=== PATIENT | female | born 1980 ===

== ENCOUNTER 2021-11-11 14:45 | Inpatient (IN) ==
[2021-11-11 17:40] LABS: ABS Basophils 0.1 10^3/ul (0-0.2); ABS Lymphocytes 1.4 10^3/ul (1.0-4.8); ABS Monocytes 0.1 10^3/ul (0-0.8); ABS Neutrophils 5.4 10^3/ul (1.5-7.7); ABS Nucleated RBC 0.1 10^3/ul; Hematocrit 12 % (35-47); Hemoglobin 3.3 g/dL (12.0-16.0); Lymphocyte % 20.6 %; Mean Corpuscular HGB Conc 27 g/dL (31-36); Mean Corpuscular Hemoglobin 18 pg (27-31); Mean Corpuscular Volume 66 fL (80-97); Mean Platelet Volume 8.1 fL (7.4-10.4); Nucleated Red Blood Cells % 1.8; Platelet Count 180 10^3/uL (150-450); Red Cell Distribution Width 22 % (10-15)
[2021-11-11 17:48] LABS: Anion Gap 10 mmol/L (2-11); Blood Urea Nitrogen 10 mg/dL (6-24); CO2 Carbon Dioxide 24 mmol/L (22-32); Chloride 102 mmol/L (101-111); Glucose 71 mg/dL (70-100); Potassium 3.8 mmol/L (3.5-5.0); Sodium 136 mmol/L (135-145); eGFR CKD-EPI 91.3 (>60)
[2021-11-11 17:56] LABS: LDH 354 U/L (140-271)
[2021-11-11 18:04] LABS: Anisocytosis 2+; Hypochromasia 2+; Microcytosis 2+
[2021-11-11 18:05] LABS: Polychromasia 1+
[2021-11-11 18:06] LABS: Stomatocytes 1+; Tear Drop Cells 1+
[2021-11-11 18:20] LABS: Folate > 20.00 ng/mL (5.90-24.80)
[2021-11-11 18:21] LABS: Vitamin B12 1161 pg/mL (180-914)
[2021-11-11] MEDS ORDERED: Lactated Ringers 1000 ml BAG 1,000 ML IV ONE (18:33)
[2021-11-11 18:52] LABS: Hematocrit for Retic CNT 12 % (35-47)
[2021-11-11 19:07] LABS: Corrected Retic Count 1.2 % (0.5-1.5); Immature Retic Fraction 0.49
[2021-11-11 19:22] LABS: TSH Ultra Thyroid Stim Horm 27.78 mcIU/mL (0.34-5.60)
[2021-11-11 19:55] LABS: ALT 8 U/L (7-52); AST 32 U/L (13-39); Albumin/Globulin Ratio 1.1 (1-3); Alkaline Phosphatase 48 U/L (35-149); Globulin 3.7 g/dL (2-4); Total Protein 7.7 g/dL (6.4-8.9); Troponin I 0.02 ng/mL (<0.03)
[2021-11-11] MEDS ORDERED: Remdesivir 100 mg Vial 200 MG in NS 0.9% 250 ml 210 ML IV ONE (19:56)
[2021-11-11 19:59] LABS: HCG Pregnancy 0.95 mIU/mL
[2021-11-11] MEDS ORDERED: cefTRIAXone 1 gm/50 mL NS BAG 1 GM/50 ML BAG IVPB SCH (20:00)
[2021-11-11 20:31] LABS: Indirect Bilirubin 0.4 mg/dL (0.3-1.0)
[2021-11-11] MEDS: Nicotine PATCH 7 MG/24 HR PATCH TRANSDERM SCH (21:42)
[2021-11-11 21:47] LABS: ABS Basophils 0.1 10^3/ul (0-0.2); ABS Lymphocytes 1.2 10^3/ul (1.0-4.8); ABS Monocytes 0.1 10^3/ul (0-0.8); ABS Neutrophils 5.2 10^3/ul (1.5-7.7); ABS Nucleated RBC 0.1 10^3/ul; Hematocrit 13 % (35-47); Hemoglobin 3.8 g/dL (12.0-16.0); Lymphocyte % 18.2 %; Mean Corpuscular HGB Conc 30 g/dL (31-36); Mean Corpuscular Hemoglobin 20 pg (27-31); Mean Corpuscular Volume 67 fL (80-97); Mean Platelet Volume 8.5 fL (7.4-10.4); Nucleated Red Blood Cells % 1.9; Platelet Count 160 10^3/uL (150-450); Red Blood Count 1.89 10^6 /uL (3.70-4.87); Red Cell Distribution Width 24 % (10-15); White Blood Count 6.5 10^3/uL (3.5-10.8)
[2021-11-11 21:50] LABS: INR 1.24 (0.86-1.15)
[2021-11-11 21:58] LABS: Albumin 3.6 g/dL (3.2-5.2); Albumin/Globulin Ratio 1.2 (1-3); Calcium 7.6 mg/dL (8.6-10.3); Globulin 3.1 g/dL (2-4); Potassium 3.7 mmol/L (3.5-5.0); Total Bilirubin 0.5 mg/dL (0.2-1.0); Total Protein 6.7 g/dL (6.4-8.9); eGFR CKD-EPI 95.5 (>60)
[2021-11-11 22:00] LABS: Troponin I 0.02 ng/mL (<0.03)
[2021-11-12 05:06] LABS: Urine Appearance Cloudy; Urine Bilirubin Negative (Negative); Urine Blood Negative (Negative); Urine Color Yellow; Urine Glucose Negative (Negative); Urine Ketones Negative (Negative); Urine Nitrite Positive (Negative); Urine Protein Negative (Negative); Urine Specific Gravity 1.028 (1.002-1.030); Urine Urobilinogen Negative (Negative)
[2021-11-12 05:11] LABS: Urine Bacteria Absent (Absent); Urine Red Blood Cell Trace(0-2/hpf) (Absent); Urine Squamous Epithelial Cell Present (Absent); Urine White Blood Cell Trace(0-5/hpf) (Absent)
[2021-11-12 06:02] LABS: INR 1.19 (0.86-1.15)
[2021-11-12 06:03] LABS: ABS Lymphocytes 1.7 10^3/ul (1.0-4.8); ABS Monocytes 0.1 10^3/ul (0-0.8); ABS Neutrophils 5.1 10^3/ul (1.5-7.7); ABS Nucleated RBC 0.1 10^3/ul; Hematocrit 16 % (35-47); Hemoglobin 5.1 g/dL (12.0-16.0); Mean Corpuscular HGB Conc 31 g/dL (31-36); Mean Corpuscular Hemoglobin 22 pg (27-31); Mean Corpuscular Volume 70 fL (80-97); Mean Platelet Volume 8.4 fL (7.4-10.4); Nucleated Red Blood Cells % 1.9; Platelet Count 155 10^3/uL (150-450); Red Blood Count 2.34 10^6 /uL (3.70-4.87); Red Cell Distribution Width 25 % (10-15)
[2021-11-12 06:10] LABS: ALT 8 U/L (7-52); AST 32 U/L (13-39); Albumin 3.8 g/dL (3.2-5.2); Albumin/Globulin Ratio 1.2 (1-3); Alkaline Phosphatase 47 U/L (35-149); Anion Gap 8 mmol/L (2-11); Blood Urea Nitrogen 11 mg/dL (6-24); CO2 Carbon Dioxide 24 mmol/L (22-32); Calcium 7.5 mg/dL (8.6-10.3); Chloride 103 mmol/L (101-111); Globulin 3.3 g/dL (2-4); Glucose 108 mg/dL (70-100); Potassium 3.9 mmol/L (3.5-5.0); Sodium 135 mmol/L (135-145); Total Protein 7.1 g/dL (6.4-8.9); eGFR CKD-EPI 98.4 (>60)
[2021-11-12] MEDS: cefTRIAXone 1 gm/50 mL NS BAG 1 GM/50 ML BAG IVPB SCH (08:30)
[2021-11-12] MEDS: Nicotine PATCH 7 MG/24 HR PATCH TRANSDERM SCH (08:31)
[2021-11-12 10:09] LABS: Free T4 < 0.25 ng/dL (0.61-1.12)
[2021-11-12 14:55] LABS: Hematocrit 19 % (35-47); Mean Corpuscular HGB Conc 31 g/dL (31-36); Mean Corpuscular Hemoglobin 23 pg (27-31); Mean Corpuscular Volume 73 fL (80-97); Mean Platelet Volume 8.6 fL (7.4-10.4); Platelet Count 159 10^3/uL (150-450); Red Blood Count 2.63 10^6 /uL (3.70-4.87); Red Cell Distribution Width 27 % (10-15); White Blood Count 7.3 10^3/uL (3.5-10.8)
[2021-11-12 15:53] LABS: ABS Lymphocytes 1.6 10^3/ul (1.0-4.8); ABS Monocytes 0.1 10^3/ul (0-0.8); ABS Neutrophils 5.5 10^3/ul (1.5-7.7); ABS Nucleated RBC 0.2 10^3/ul; Lymphocyte % 21.7 %; Nucleated Red Blood Cells % 2.5
[2021-11-12 19:00] LABS: Erythrocyte Sed Rate > 120 mm/Hr (0-19)
[2021-11-12] MEDS: Senna TAB 8.6 mg TAB PO PRN (20:26)
[2021-11-12] MEDS: Remdesivir 100 mg Vial 100 MG in NS 0.9% 250 ml 230 ML IV SCH (20:27)
[2021-11-13 06:56] LABS: ABS Lymphocytes 2.2 10^3/ul (1.0-4.8); ABS Monocytes 0.2 10^3/ul (0-0.8); ABS Neutrophils 4.6 10^3/ul (1.5-7.7); ABS Nucleated RBC 0.2 10^3/ul; Hematocrit 19 % (35-47); Hemoglobin 5.7 g/dL (12.0-16.0); Lymphocyte % 30.7 %; Mean Corpuscular HGB Conc 31 g/dL (31-36); Mean Corpuscular Hemoglobin 23 pg (27-31); Mean Corpuscular Volume 74 fL (80-97); Mean Platelet Volume 8.7 fL (7.4-10.4); Nucleated Red Blood Cells % 3.3; Platelet Count 137 10^3/uL (150-450); Red Blood Count 2.52 10^6 /uL (3.70-4.87); Red Cell Distribution Width 27 % (10-15); White Blood Count 7.1 10^3/uL (3.5-10.8)
[2021-11-13 07:09] LABS: Albumin 3.6 g/dL (3.2-5.2); Albumin/Globulin Ratio 1.1 (1-3); Calcium 7.6 mg/dL (8.6-10.3); Globulin 3.3 g/dL (2-4); Magnesium 2.1 mg/dL (1.9-2.7); Potassium 3.9 mmol/L (3.5-5.0); Total Bilirubin 0.4 mg/dL (0.2-1.0); Total Protein 6.9 g/dL (6.4-8.9); eGFR CKD-EPI 103.2 (>60)
[2021-11-13 07:13] LABS: INR 1.12 (0.86-1.15)
[2021-11-13] MEDS: cefTRIAXone 1 gm/50 mL NS BAG 1 GM/50 ML BAG IVPB SCH (07:18)
[2021-11-13 07:45] LABS: HDL Cholesterol 25.4 mg/dL
[2021-11-13] MEDS: Nicotine PATCH 7 MG/24 HR PATCH TRANSDERM SCH (09:07)
[2021-11-13] MEDS: Enoxaparin 40 MG/0.4 ML SYR SUBCUT SCH (12:44)
[2021-11-13 15:02] LABS: % Iron Saturation 3 % (14 - 50); Total Iron Binding Capacity 432 mcg/dL (250 - 400); Transferrin 366 mg/dL (200 - 360)
[2021-11-13 16:20] LABS: Hematocrit 23 % (35-47); Hemoglobin 7.1 g/dL (12.0-16.0); Mean Corpuscular HGB Conc 31 g/dL (31-36); Mean Corpuscular Hemoglobin 24 pg (27-31); Mean Corpuscular Volume 76 fL (80-97); Platelet Count 145 10^3/uL (150-450); Red Cell Distribution Width 26 % (10-15); White Blood Count 7.8 10^3/uL (3.5-10.8)
[2021-11-13 16:53] LABS: Anisocytosis 2+; Hypochromasia 1+; Polychromasia 1+
[2021-11-13 16:54] LABS: Tear Drop Cells 1+
[2021-11-13 16:55] LABS: ABS Lymphocytes 1.2 10^3/ul (1.0-4.8); ABS Monocytes 0.2 10^3/ul (0-0.8); ABS Neutrophils 6.4 10^3/ul (1.5-7.7); ABS Nucleated RBC 0.3 10^3/ul; Lymphocyte % 15.5 %; Nucleated Red Blood Cells % 4.3
[2021-11-13 17:05] LABS: Microcytosis 2+
[2021-11-13] MEDS: Remdesivir 100 mg Vial 100 MG in NS 0.9% 250 ml 230 ML IV SCH (20:15)
[2021-11-13] MEDS: Senna TAB 8.6 mg TAB PO PRN (20:15)
[2021-11-14 05:34] LABS: Hematocrit 22 % (35-47); Hemoglobin 6.9 g/dL (12.0-16.0); Mean Corpuscular HGB Conc 32 g/dL (31-36); Mean Corpuscular Hemoglobin 24 pg (27-31); Mean Corpuscular Volume 75 fL (80-97); Mean Platelet Volume 8.8 fL (7.4-10.4); Platelet Count 150 10^3/uL (150-450); Red Blood Count 2.91 10^6 /uL (3.70-4.87); Red Cell Distribution Width 27 % (10-15); White Blood Count 6.6 10^3/uL (3.5-10.8)
[2021-11-14 05:49] LABS: INR 1.12 (0.86-1.15)
[2021-11-14 05:50] LABS: ABS Lymphocytes 2.3 10^3/ul (1.0-4.8); ABS Monocytes 0.4 10^3/ul (0-0.8); ABS Neutrophils 3.9 10^3/ul (1.5-7.7); ABS Nucleated RBC 0.5 10^3/ul; Lymphocyte % 34.3 %; Nucleated Red Blood Cells % 6.9
[2021-11-14 05:57] LABS: Albumin 3.5 g/dL (3.2-5.2); Calcium 7.7 mg/dL (8.6-10.3); Globulin 3.5 g/dL (2-4); Potassium 3.9 mmol/L (3.5-5.0); Total Bilirubin 0.5 mg/dL (0.2-1.0); eGFR CKD-EPI 108.3 (>60)
[2021-11-14] MEDS: Nicotine PATCH 7 MG/24 HR PATCH TRANSDERM SCH (08:22)
[2021-11-14] MEDS: cefTRIAXone 1 gm/50 mL NS BAG 1 GM/50 ML BAG IVPB SCH (08:23)
[2021-11-14] MEDS: Enoxaparin 40 MG/0.4 ML SYR SUBCUT SCH (08:26)
[2021-11-14] MEDS ORDERED: Potassium Chlor 20 meq TAB.ER PO ONE (13:35)
[2021-11-14] MEDS: Remdesivir 100 mg Vial 100 MG in NS 0.9% 250 ml 230 ML IV SCH (21:07)
[2021-11-15 06:45] LABS: Hematocrit 25 % (35-47); Hemoglobin 7.8 g/dL (12.0-16.0); Mean Corpuscular HGB Conc 32 g/dL (31-36); Mean Corpuscular Hemoglobin 24 pg (27-31); Mean Corpuscular Volume 77 fL (80-97); Mean Platelet Volume 9.1 fL (7.4-10.4); Platelet Count 170 10^3/uL (150-450); Red Blood Count 3.19 10^6 /uL (3.70-4.87); Red Cell Distribution Width 28 % (10-15); White Blood Count 6.1 10^3/uL (3.5-10.8)
[2021-11-15 06:52] LABS: INR 1.17 (0.86-1.15)
[2021-11-15 07:03] LABS: Albumin 3.6 g/dL (3.2-5.2); Globulin 3.5 g/dL (2-4); Total Bilirubin 0.4 mg/dL (0.2-1.0); Total Protein 7.1 g/dL (6.4-8.9); eGFR CKD-EPI 112.1 (>60)
[2021-11-15 07:29] LABS: ABS Lymphocytes 2.6 10^3/ul (1.0-4.8); ABS Monocytes 0.5 10^3/ul (0-0.8); ABS Neutrophils 2.9 10^3/ul (1.5-7.7); ABS Nucleated RBC 0.3 10^3/ul; Lymphocyte % 42.5 %; Nucleated Red Blood Cells % 5.6
[2021-11-15 07:32] LABS: Anisocytosis 1+; Microcytosis 1+; Polychromasia 1+
[2021-11-15] MEDS ORDERED: Iron Sucrose 200 MG in NS 0.9% 100 ml BAG 100 ML IVPB ONE (09:41)
[2021-11-15] MEDS: cefTRIAXone 1 gm/50 mL NS BAG 1 GM/50 ML BAG IVPB SCH (09:51)
[2021-11-15] MEDS: Enoxaparin 40 MG/0.4 ML SYR SUBCUT SCH (09:52)
[2021-11-15] MEDS: Nicotine PATCH 7 MG/24 HR PATCH TRANSDERM SCH (09:54)
[2021-11-15 11:06] VITALS: BP 94/51
== END 2021-11-15 14:50 | disposition home or self-care (01) | DRG 663 ==
LOC: MEDTELE 16:56 → SUATTDRO 16:56 → MED 20:59
PROVIDERS: ADMIT Internal Medicine; ATTEND Internal Medicine